=== PATIENT | female | born 1980 | race Caucasian/White ===

== ENCOUNTER 2024-02-17 09:51 | Emergency (ER) | payer OTHER ==
[~2024-02-17] VITALS: Ht 170.2 cm; Wt 74.8 kg
[~2024-02-17 09:51] MED LIST: ACYC200 PO; IBUP800 PO; IRON18 MG; POLY500 PO; PRENATAL TABLE1 EAC2
[2024-02-17 10:00] VITALS: BP 132/89
[2024-02-17] MEDS ORDERED: Diphth,Pertuss(Acell),Tet Vac 0.5 ML VIAL IM ONE (10:05)
[2024-02-17] MEDS ORDERED: AMOCLA875 PO (10:37)
== END 2024-02-17 10:45 | disposition home or self-care (01) ==
LOC: ER 09:51
DX: S80.871A Other superficial bite, right lower leg, initial encounter (principal); S00.471A Other superficial bite of right ear, initial encounter; W54.0XXA Bitten by dog, initial encounter; Z23 Encounter for immunization; Z79.1 Long term (current) use of non-steroidal anti-inflammatories (NSAID); Z79.899 Other long term (current) drug therapy
CPT/HCPCS: 90471; 90715; 99283-25